=== PATIENT | female | born 1955 | race Caucasian/White ===

== ENCOUNTER 2017-02-09 13:45 | Outpatient (RCR) | payer BC ==
--- NOTE | 2017-01-09 15:03 | PT/OT/ST INITIAL EVALUATION ---
Department of Health and Human Services Form Approved [facility] Care Financing Administration OMB No. [id number] PLAN OF CARE/ASSESSMENT FOR OUTPATIENT REHABILITATION (Complete for Initial Claims Only) 1. PATIENT'S NAME Charmaine Flores 2. ACC # [id number] 3. HICN NA 4. PROVIDER NO. [id number] 5. TYPE: PT 6. PRIOR HOSPITALIZATION NA 7. PRIMARY DX Left shoulder and neck pain 8. SECONDARY DX Neck stiffness, biomechanical dysfunction, left shoulder stiffness and weakness. 9. ONSET DATE 3 weeks ago 10. REFERRAL DATE 01/02/2017 11. SOC. DATE 01/05/2017 12. TIME OF EVAL 3:20 p.m. to 4:20 p.[address]. [address]YS[address]IAN Dr. Virk 13. CHARGES/UNITS PT evaluation 59418 low complexity Therapeutic exercise 74357, 2 units Vasopneumatic device 22253, 1 unit 14. G CODES NA 15. PRIOR LEVEL OF FUNCTION; PERTINENT HISTORY (Prior therapy results, reason for referral.) S: Prior to therapy, the patient consented to today's evaluation and treatment. The patient is a 61-year-old female referred to therapy by Dr. Virk to address functional limitations secondary to left shoulder and neck pain. Current complaint/Mechanism of injury: The patient reports that her neck pain began about 3 weeks ago. She states that there was no significant injury. The only thing that she can think of is that she was doing some heavy mopping and then the left side of her neck between her shoulder, glenohumeral joint, and her ear swelled up. The patient states that 4 years ago she had 2 surgeries on her left shoulder, one for a rotator cuff repair and one for "it freezing up" and she states that an MRI has shown that she has re-torn that rotator cuff repair. The patient reports that she has pain in the anterior and posterior portion of her left shoulder and shoulder blade. The patient's left shoulder feels heavy and feels like it falls down and cannot keep her bra strap up. 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 [employer] rates the patient as 70.45. Occupational and social health history: The patient is a deputy director 2 hours a day, 6 days a week. Therapy History: None for the current diagnosis. Pain level: The patient rates the current pain level as 8/10 and describes the pain as burning, "hurts", weakness. The patient reports there are no tingling and no pain down into her left arm. Obstacles to delivery of care: None noted. Aggravating factors: Include moving it. Relieving factors: Include none. Diagnostic testing: MRI of the left shoulder has shown her rotator cuff repair done previously has been re-torn. There has been no imaging done of her neck. Past medical history: stomach problems, gall bladder removed Past surgical history: Includes gallbladder being removed and left rotator cuff repair and left shoulder surgery to remove the scar tissue approximately 4 years ago. Current medications: Include ibuprofen 3 times a day. Leisure activities: Include gardening. Activity level: Not listed. However currently it is low due to left shoulder pain. Personal health rating: Listed as good. Patient's Goal: The patient's goal for physical therapy is to have her shoulder fixed. 16. INITIAL ASSESSMENT/SAFETY PRECAUTIONS/MEDICAL COMPLICATIONS (Level of function at start of care. Be specific, use objective measures, list problems.) O: APPEARANCE AND OBSERVATION: The patient presents to physical therapy with the diagnosis of left shoulder pain and neck pain. The patient is left handed. The patient presents with significant swelling noticeable between the left glenohumeral joint and the left ear on the anterior portion above her clavicle. The patient reports mild discomfort with gentle cervical compression and gentle cervical extraction. Distraction was more painful than compression. The patient reports that she has not been told what the swelling is between the neck and the shoulder. She states that in the last 3 weeks the swelling has not improved. PALPATION: The patient was tender to palpate on the inferior and medial border of the left scapula, as well as the area between the left glenohumeral joint and left ear. SPECIAL TESTS: None performed due to pain. RANGE OF MOTION/FLEXIBILITY: Cervical active range of motion flexion 100%, extension 25% with reports of a pulling hurt. Left side bending 50% and the patient feels like it stops without pain. Right side bending 25% with pain with a pulling sensation. Left rotation 75%, right rotation 60% with pain and the patient states it feels stuck. Active range of motion of the shoulders-left shoulder flexion 111 degrees and reports it feels weak and like it just stops with pain. Abduction 107 degrees, external rotation to C6, and internal rotation to the PSIS. Right shoulder active range of motion-flexion 161 degrees, abduction 179 degrees, external rotation 91 degrees and internal rotation 69 degrees. Passive range of motion of the left shoulder flexion 118 degrees with a hard end-feel and abduction 40 degrees with an empty end-feel due to pain. STRENGTH: Manual muscle testing was not formally performed due to pain. Upon observation the left shoulder rates a 2/5. TODAY'S TREATMENT: Includes the initial PT evaluation followed by therapeutic exercise and vasopneumatic device. 17. INITIAL POC: (Specify procedures, modalities, short and mcc goals) A: The patient presents to physical therapy with the diagnosis of left shoulder and left neck pain with functional limitations of neck stiffness, biomechanical dysfunction, left shoulder stiffness and weakness. The patient would benefit from physical therapy to help to decrease irritation and pain of the left shoulder and left neck and restore proper biomechanics of the glenohumeral joint and scapulothoracic joint in order to regain motion, which could possibly be limited by the re-tear of the left rotator cuff, but there is no reports on the extent of that tear or which tendons were involved. PROGNOSIS: The patient has a fair prognosis for increased active range of motion with decreased pain with regular therapy attendance and compliance with prescribed home exercise program. CONTRAINDICATIONS, PRECAUTIONS AND OBSTACLES TO DELIVERY OF CARE: PT would prefer not to perform ultrasound until we are sure what the swelling on the left anterior shoulder region, between the left ear and left glenohumeral joint is. INFORMED CONSENT: The prognosis and goals were discussed with the patient, as well as the expected outcome and possible risks. The patient agreed to under PT evaluation and further treatment. SHORT TERM GOALS: 1. 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 2. The patient is to have an increase of manual muscle testing of the left shoulder to 4-/5 in 6 weeks in order to raise her arm for reaching and to put objects away, such as dishes with minimal deviation. 3. The patient is to have an increase in active range of motion of the left shoulder to flexion 130 degrees, abduction 120 degrees, and external rotation to 70 degrees and internal rotation to 50 degrees. Both external and internal rotation being measured in 90 degrees of abduction position in 6 weeks for improved reaching for overhead activities such as cleaning with minimal deviation. 4. The patient is to have an increase in passive range of motion of the left shoulder to flexion 155 degrees, abduction 170 degrees, external rotation to 85 degrees and internal rotation to 55 degrees in order to prevent a frozen left shoulder within 6 weeks. 5. The patient is to be independent with a progressive home exercise program. P: Plan to treat this patient 2 times a week for 6 weeks. Treatment to include modalities for pain and inflammation. No ultrasound to be done. Manual therapy interventions, therapeutic exercise, active and passive range of motion, gait training, balance and proprioceptive training, neural reeducation and patient education of progressive home exercise program as tolerable. 18. FREQUENCY 2 times a week 19. DURATION 6 weeks 20. FUNCTIONAL LEVEL (End of claim period) 21. PHYSICIAN SIGNATURE ? ON FILE OR ENTER HERE: 22. DATE: I certify the need for these services furnished under this plan of care and if for partial hospitalization. 23. CERTIFICATION FROM THROUGH FORM [id number]
== END 2017-02-16 12:00 | disposition home or self-care (01) ==
LOC: PT 13:45
PROVIDERS: ATTEND Orthopaedic Surgery
DX: M25.512 Pain in left shoulder (principal); M54.2 Cervicalgia; M25.612 Stiffness of left shoulder, not elsewhere classified